=== PATIENT | male | born 1955 | race Caucasian/White ===

== ENCOUNTER 2024-12-02 08:38 | Outpatient (AMB) | payer MEDICARE, MEDICAID, SELFPAY ==
[2024-12-02 08:54] VITALS: BP 190/93; PULSE 63; RESP 17; TEMP 35.7; O2SAT 98; BMI 37.1
--- NOTE | 2024-12-02 08:54 | ACNOTE_ITS ---
Vital Signs 12/02/24 08:54 Height 1.8 m Height Method Measured Weight 120.769 kg Weight Measurement Method Standing Scale BMI 37.1 BP 190/93 H Blood Pressure Source Automatic Cuff Blood Pressure Location Right Upper Arm Position Sitting Respiration 17 Pulse 63 Pulse Source Monitor Temp 96.3 F L Temp Source Temporal Artery Scan Pulse Oximetry (%) 98 Oxygen Delivery Method Room Air Allergies/Meds Allergies & Medications Allergies No Known Allergies Allergy (Verified 12/02/24 08:55) Medication Reconciliation atorvastatin 40 mg tablet 40 mg PO DAILY 02/23/24 [History Confirmed 12/02/24] metoprolol tartrate 100 mg tablet 100 mg PO BID 02/23/24 [History Confirmed 12/02/24] nitroglycerin 0.4 mg sublingual tablet 0.4 mg buccal 02/23/24 [History Confirmed 12/02/24] olmesartan 40 mg tablet 40 mg 02/23/24 [History Confirmed 12/02/24] rivaroxaban 20 mg tablet (Xarelto) mg 02/23/24 [History Confirmed 12/02/24] lorazepam 0.5 mg tablet 0.5 mg PO QDAY PRN anxiety #20 tabs 12/02/24 [Rx] tramadol 50 mg tablet 50 mg PO BID PRN pain #30 tabs 12/02/24 [Rx] venlafaxine 37.5 mg capsule,extended release 24 hr 37.5 mg PO QDAY #30 caps 12/02/24 [Rx] MA Intake Visit Data Collection Reason for Visit:: RIGHT SHOULDER PAIN Pain Present Currently: Yes 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 Required: No PCP or OBGYN visit in last 3 months: No Hx Now: No Do You Feel Safe at Home: Yes Authorities Contacted: N/A Smoking Status Smoking Status: Never smoker Immunization / Flu Flu Vaccine in the Last 12 Months: No Flu Vaccine Exclusion Criteria: No Exclusion Criteria Past Medical History Past Medical History NEUROLOGIC: Negative Cerebrovascular Accident or Seizures CARDIAC: Positive Myocardial Infarction, Atrial Fibrillation, Coronary Artery Disease, Hypercholesterolemia, Congestive Heart Failure, Congenital Heart Disease and Hypertension; Negative Angina, Peripheral Vascular Disease or Valvular Heart Disease RESPIRATORY: Positive Bronchitis; Negative Chronic Obstructive Pulmonary Disease (COPD), Asthma or Sleep Apnea GASTROINTESTINAL: Positive Ulcer and Gastroesophageal Reflux Disease GENITOURINARY: Negative Renal Disease MUSCULOSKELETAL: Positive Fractures (jaw-wire sternal ohs wires) ENDOCRINE: Positive Diabetes Mellitus Type 2; Negative Diabetes Mellitus Type 1 HEMATOLOGIC: Negative Anemia PSYCHO/SOCIAL: Positive Anxiety and Post Traumatic Stress Disorder OTHER HISTORY: Negative Blood Transfusions or Cancer Surgical History SURGICAL: Positive Open Heart Surgery, Coronary Artery Bypass Graft (cabgx3), Coronary Stent (x2), Cardiac Catheterization, Pacemaker and Angiogram; Negative Thyroidectomy Social History SMOKING STATUS: Smoking status: Never smoker ALCOHOL: Alcohol Intake: Current HOUSING: Housing: House Patient Portal Questionaires Social History Living Situation History Housing: House Tobacco History Smoking Status: Never smoker Alcohol History Alcohol Intake: Current Domestic Abuse History Do You Feel Safe at Home: Yes Review of Systems Report any current symptoms Only answer those that you have currently: Past Medical History Past Medical History Have you ever been diagnosed with any of the following: Neurological Problems Cerebrovascular Accident (CVA): No Seizures: No Cardiology Problems Myocardial Infarction: Yes Atrial Fibrillation: Yes Angina: No Coronary Artery Disease: Yes Peripheral Vascular Disease: No Hypercholesterolemia: Yes Congestive Heart Failure: Yes Congenital Heart Disease: Yes Valvular Heart Disease: No Hypertension: Yes Respiratory Problems Chronic Obstructive Pulmonary Disease (COPD): No Asthma: No Bronchitis: Yes Sleep Apnea: No Stomache/Intestinal Problems Ulcer: Yes Gastroesophageal Reflux Disease: Yes Genital/Urinary Problems Renal Disease: No Musculoskeletal Problems Fractures: Yes (jaw-wire sternal ohs wires) Endocrine Problems Diabetes Mellitus Type 1: No Diabetes Mellitus Type 2: Yes Blood Problems Anemia: No Psychologic Problems Anxiety: Yes Post Traumatic Stress Disorder: Yes Other Problems Blood Transfusions: No Cancer: No Surgical History Coronary Artery Bypass Graft: Yes (cabgx3) Pacemaker: Yes Thyroidectomy: No History of Present Illness HPI Narrative 69-year-old male with past medical history of CAD s/p stents x 2 and bypass x 3, 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 Patient states that he does not have any primary care physician for quite some time now as he previously was seeing another primary care physician, but stopped seeing them. Patient stated that recently he got a prostate infection for which she saw a walk-in clinic, but did not follow-up with them after treatment. He states that he has not had blood work for quite some time now. Patient stated that he has never had a colonoscopy and he refuses to have one at this time. Patient has been taking ibuprofen 600 mg 3-4 times a day due to right shoulder pain with brought him to seek care today with us. Patient stated that he also noted his nosebleed and dark stools a few days ago and that he thought that it was likely due to the ibuprofen. Patient also states that he drinks around 4 wine glasses every nigh t. Patient states that he drinks 4 glasses of wine every night since he has not been taking his Ativan. He states that his previous primary care physician did not want to refill his Ativan where subsequently resulted in the patient not seen the primary care physician anymore and more quantities of alcohol in order to help with his anxiety and panic as well as with his pain. Patient stated Tylenol does not help at all. He stated that he was in the past on Lexapro for his anxiety/panic, but that he stopped this himself after he read online that these could cause A-fib. Patient was educated on his current diagnoses and need for further workup as well as treatment for his anxiety/panic with an SNRI. He stated that he was a little bit reluctant in starting the SNRI given that he can potentially cause him to have A-fib again. It was explained to him that currently has a pacemaker and he is currently on treatment for A-fib and he also has an ICD in place therefore initiation of this treatment would be more beneficial for him as it would likely decrease his alcohol consumption at this time. Will also order Ativan 0.5 mg as needed daily for uncontrollable anxiety/panic and it was explained thoroughly to the patient that this medication cannot be used at the same time with alcohol and he stated that he understood this and when he was using Ativan he did not use alcohol at all. E xplained the risk factors to respiratory depression and risk even including when combining these medications with alcohol. For the patient's pain we have also started tramadol 50 mg twice daily as needed. Will follow-up in 2 weeks to monitor his improvement in his pain and follow-up on labs and x-rays. Review of Systems Review of Systems Narrative Review of Systems: Constitutional: Denies sweats, Denies weight loss/gain, Denies fever, Denies chills, Admits anxiety/panic HEENT: Denies hearing loss, Denies ear pain, Denies postnasal drip, Denies double vision, Denies blurry vision. Respiratory: Denies shortness of breath, Denies cough, Denies wheezing. Cardiovascular: Denies chest pain, Denies palpitations, Denies sudden loss of consciousness. GI: Denies blood in stool, Denies constipation, Denies abdominal pain, Denies difficulty swallowing, Denies nausea or vomit. : Denies urinary incontinence, Denies pain while urinating, Denies increased urinary frequency. MSK: Admits joint pain, Denies joint swelling, Denies numbness. Skin: Denies rash, Denies itching, Denies easy bruising. Neuro: Denies headaches, Denies dizziness, Denies seizures. Objective/Exam General General Appearance: alert, in no apparent distress, comfortable and cooperative Head Head exam: atraumatic, normocephalic and normal inspection Eye Eye exam: Present normal appearance, PERRL and EOMI ENT ENT exam: Present normal exam, normal oropharynx and mucous membranes moist Neck Neck exam: Present normal inspection, full ROM and tenderness (mild tenderness with R side movment ) Resp Respiratory exam: Present normal lung sounds bilaterally Card Cardiovascular exam: Present regular rate, normal rhythm and normal heart sounds Abdominal Abdominal exam: Present soft and normal bowel sounds Extremities Extremities exam: Present normal inspection, full ROM (except for mildly restricted R shoulder posterior movement ), tenderness (R shoulder and tricep area ) and pedal edema (trace) Neuro Neurological exam: Present alert, oriented X3, CN II-XII intact and normal gait Psych Psychiatric exam: Present normal affect and normal mood Skin Skin exam: Present warm, intact and normal color Assessment & Plan Diagnosis / Problem List (1) Shoulder pain: Status: Acute Qualifiers: Chronicity: chronic Laterality: right Qualified Code(s): M25.511 - Pain in right shoulder; G89.29 - Other chronic pain Assessment & Plan: Patient states he has had right shoulder pain since last year in summer, he does not recall any trauma or any abnormal movements. He has been taking ibuprofen 600 mg 2 or 3 times a day to control the pain He states that his pain will initially was with some episodes, but noise continues. Plan: Will get x-ray of right shoulder as well as cervical spine as patient could be having some cervical radiculopathy Will also refer patient for physical therapy Will start patient on tramadol 50 mg twice daily for total of 30 pills and will monitor improvement on next visit (2) Cervicalgia: Status: Acute Assessment & Plan: Patient states he has had right shoulder pain since last year in summer, he does not recall any trauma or any abnormal movements. Now has some neck pain. He has been taking ibuprofen 600 mg 2 or 3 times a day to control the pain He states that his pain will initially was with some episodes, but noise continues. Plan: Will get x-ray of right shoulder as well as cervical spine as patient could be having some cervical radiculopathy Will also refer patient for physical therapy Will start patient on tramadol 50 mg twice daily for total of 30 pills and will monitor improvement on next visit (3) Panic anxiety syndrome: Status: Acute Assessment & Plan: Patient stated that he has been having panic attacks and anxiety for quite some time he was previously on Lexapro, but that he stopped this medication by his own accord as he read online that this could cause A-fib. Patient states that he has been drinking more alcohol, 4 wine glasses every evening, due to patient's diarrhea and panic as he has not been taking his Ativan as it was not prescribed at his previous primary care physician. Plan: Advised patient to abstain from alcohol Started patient on venlafaxine 37.5 mg Prescribed Ativan 0.5 mg p.o. daily as needed Again explained risk about mixing the prescribed medications with alcohol as th mandi could cause respiratory depression and can lead to . Patient understood risks and stated that he would not drink alcohol (4) Melena: Status: Acute Assessment & Plan: Patient has been taking ibuprofen 600 mg 3-4 times a day He experienced some melena recently and is on Xarelto Plan: Advised patient to stop taking NSAIDs Will order occult blood Will order CBC Will possibly refer patient to GI if occult blood positive and drop in hemoglobin. (5) DM (diabetes mellitus): Status: Acute Qualifiers: Diabetes mellitus complication status: without complication Diabetes mellitus intermodal customer service insulin use: unspecified penitentiary insulin use status Diabetes mellitus type: type 2 Qualified Code(s): E11.9 - Type 2 diabetes mellitus without complications Assessment & Plan: Patient's last A1c was 7.6 in 2023 Patient is not currently on any diabetes medication Plan: Ordered A1c Ordered CMP Ordered lipid panel Orders: Orders Ambulatory Hemoglobin A1C Today Mega Lang MD E11.9 - Type 2 diabetes mellitus without complications Comprehensive Metabolic Panel Today Mega Lang MD E11.9 - Type 2 diabetes mellitus without complications Thyroid Stimulating Hormone Today Mega Lang MD I25.10 - Atherosclerotic heart disease of [place] coronary artery without angina pectoris, I48.91 - Unspecified atrial fibrillation XR shoulder RT min 2V Today Mega Lang MD M25.519 - Pain in unspecified shoulder Lipid Panel Today Mega Lang MD E11.9 - Type 2 diabetes mellitus without complications, I25.10 - Atherosclerotic heart disease of [place] coronary artery without angina pectoris CBC Today Mega Lang MD E11.9 - Type 2 diabetes mellitus without complications Occult Blood, Stool (LAB) Today Mega Lang MD K92.1 - Melena XR cervical spine 1V Today Mega Lang MD M54.2 - Cervicalgia Additional Plan Case disclosed with Attending Dr. Alley Lang PGY1 Disclaimer: Even though this this note was dictated by speech recognition and even though it was carefully revised there may still be minor errors in subway operator due to voice recognition software. 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
== END 2024-12-02 09:56 | disposition home or self-care (01) ==
PROVIDERS: Supervising Provider Internal Medicine; Visit Provider Student in an Organized Health Care Education/Training Program
DX: M25.511 Pain in right shoulder (principal); M54.2 Cervicalgia; F41.0 Panic disorder [episodic paroxysmal anxiety]; K92.1 Melena; E11.9 Type 2 diabetes mellitus without complications; I25.10 Atherosclerotic heart disease of native coronary artery without angina pectoris; Z95.5 Presence of coronary angioplasty implant and graft; I50.20 Unspecified systolic (congestive) heart failure; Z95.810 Presence of automatic (implantable) cardiac defibrillator
CPT/HCPCS: 99203; G0463

== ENCOUNTER → 2024-12-21 | Outpatient (CLI) | payer MEDICARE, MEDICAID, SELFPAY ==
[2024-12-21 11:24] LABS: Basophils # (Auto) 0.0 Thou/mm3 (0.0-0.2); Basophils % (Auto) 1 % (0-2.5); Eosinophils # (Auto) 0.1 Thou/mm3 (0.0-0.5); Eosinophils % (Auto) 1 % (0-10); Hematocrit 41.0 % (41.0-53.0); Hemoglobin 14.0 g/dL (13.5-16.0); Immature Granulocytes Auto 0.03 Thou/mm3 (0.00-0.00); Lymphocytes # (Auto) 1.9 Thou/mm3 (1.0-4.8); Lymphocytes % (Auto) 30 % (10-50); Mean Corpuscular HGB Conc 34.1 g/dl (31.0-37.0); Mean Corpuscular Hemoglobin 31.3 pg (25.0-35.0); Mean Corpuscular Volume 92 fL (80-100); Monocytes # (Auto) 0.6 Thou/mm3 (0.0-0.8); Monocytes % (Auto) 10 % (0-12); Neutrophils # (Auto) 3.8 Thou/mm3 (1.8-7.7); Neutrophils % (Auto) 59 % (37-80); Nucleated Red Blood Cell # 0.00 Thou/mm3 (0.00-0.00); Nucleated Red Blood Cell % 0 /100 WBC (0); Platelet Count 180 Thou/mm3 (140-440); RDW Standard Deviation 40.9 fL (35.1-43.9); Red Blood Count 4.47 Miln/mm3 (4.50-5.90); White Blood Count 6.5 Thou/mm3 (3.8-10.6)
[2024-12-21 11:41] LABS: Glucose Estimated Average 131 mg/dL (80-131); Hemoglobin A1C 6.2 % Hgb (4.8-6.0)
[2024-12-21 11:49] LABS: Alanine Aminotransferase 59 U/L (10-49); Albumin, Serum 4.3 gm/dL (3.4-4.8); Albumin/Globulin Ratio 2.0 (1.2-2.2); Alkaline Phosphatase 63 U/L (46-116); Anion Gap 10 (7-16); Aspartate Amino Transferase 54 U/L (0-34); BUN/Creatinine Ratio 13 Ratio (12-20); Bilirubin,Total 1.0 mg/dL (0.3-1.2); Blood Urea Nitrogen 12 mg/dL (9-23); Calcium 9.2 mg/dL (8.3-10.6); Calcium (Corrected) 9.2 mg/dL (8.5-10.1); Carbon Dioxide 25.6 mMol/L (20.0-31.0); Cardiac Risk Estimate 3.3 RATIO (4.0-6.7); Chloride 103 mMol/L (98-107); Cholesterol 150 mg/dL (132-200); Creatinine (Component) 0.9 mg/dL (0.6-1.3); Globulin 2.1 gm/dL (2.3-3.5); Glucose 133 mg/dL (74-106); HDL Cholesterol 46 mg/dL (40-60); LDL Cholesterol,Calculated 68 mg/dL (0-130); Osmolality,Calculated 279 (275-295); Potassium 4.6 mMol/L (3.4-5.1); Sodium 139 mMol/L (136-145); Thyroid Stimulating Hormone 2.95 uIU/mL (0.55-4.78); Total Protein 6.4 gm/dL (5.7-8.2); Triglycerides 179 mg/dL (30-150); eGFR > 60 See Note
== END | disposition home or self-care (01) ==
DX: I48.91 Unspecified atrial fibrillation (principal); I25.10 Atherosclerotic heart disease of native coronary artery without angina pectoris; E11.9 Type 2 diabetes mellitus without complications
CPT/HCPCS: 36415; 80053; 80061; 83036; 84443; 85025

== ENCOUNTER 2024-12-23 09:49 | Outpatient (AMB) | payer MEDICARE, MEDICAID, SELFPAY ==
[2024-12-23 10:06] VITALS: BP 170/79; PULSE 64; RESP 20; TEMP 37; O2SAT 97; BMI 36.8
--- NOTE | 2024-12-23 10:06 | PD.RESCLINIC ---
Vital Signs 12/23/24 10:06 Height 1.8 m Height Method Stated Weight 119.295 kg Weight Measurement Method Standing Scale BMI 36.8 BP 170/79 H Blood Pressure Source Automatic Cuff Blood Pressure Location Left Upper Arm Position Sitting Respiration 20 Pulse 64 Pulse Source Monitor Temp 98.6 F Temp Source Temporal Artery Scan Pulse Oximetry (%) 97 Oxygen Delivery Method Room Air Allergies/Meds Allergies & Medications Allergies No Known Allergies Allergy (Verified 12/02/24 08:55) MA Intake Visit Data Collection New Patient or Established: Established Patient (seen at [facility] within 3 years) Seen by Clinical Staff ONLY (RN/MA): No Reason for Visit:: FOLLOW UP/ RIGHT SHOULDER PAIN Pain Present Currently: Yes Pain Location: Shoulder (RIGHT SHOULDER PAIN WITH NUMBNESS ) Pain scale:: 8 Cashier Courtesy Booth Required: No PCP or OBGYN visit in last 3 months: Yes Date of Last PCP or OBGYN visit: 12/02/24 Do You Feel Safe at Home: Yes Authorities Contacted: N/A Smoking Status Smoking Status: Never smoker Immunization / Flu Flu Vaccine in the Last 12 Months: Yes Flu Vaccine Exclusion Criteria: Already Received Past Medical History Past Medical History NEUROLOGIC: Negative Cerebrovascular Accident or Seizures CARDIAC: Positive Myocardial Infarction, Atrial Fibrillation, Coronary Artery Disease, Hypercholesterolemia, Congestive Heart Failure, Congenital Heart Disease and Hypertension; Negative Angina, Peripheral Vascular Disease or Valvular Heart Disease RESPIRATORY: Positive Bronchitis; Negative Chronic Obstructive Pulmonary Disease (COPD), Asthma or Sleep Apnea GASTROINTESTINAL: Positive Ulcer and Gastroesophageal Reflux Disease GENITOURINARY: Negative Renal Disease MUSCULOSKELETAL: Positive Fractures (jaw-wire sternal ohs wires) ENDOCRINE: Positive Diabetes Mellitus Type 2; Negative Diabetes Mellitus Type 1 HEMATOLOGIC: Negative Anemia PSYCHO/SOCIAL: Positive Anxiety and Post Traumatic Stress Disorder OTHER HISTORY: Negative Blood Transfusions or Cancer Surgical History SURGICAL: Positive Open Heart Surgery, Coronary Artery Bypass Graft (cabgx3), Coronary Stent (x2), Cardiac Catheterization, Pacemaker and Angiogram; Negative Thyroidectomy Social History SMOKING STATUS: Smoking status: Never smoker ALCOHOL: Alcohol Intake: Current HOUSING: Housing: House Patient Portal Questionaires Social History Living Situation History Housing: House Tobacco History Smoking Status: Never smoker Alcohol History Alcohol Intake: Current Domestic Abuse History Do You Feel Safe at Home: Yes Review of Systems Report any current symptoms Only answer those that you have currently: Past Medical History Past Medical History Have you ever been diagnosed with any of the following: Neurological Problems Cerebrovascular Accident (CVA): No Seizures: No Cardiology Problems Myocardial Infarction: Yes Atrial Fibrillation: Yes Angina: No Coronary Artery Disease: Yes Peripheral Vascular Disease: No Hypercholesterolemia: Yes Congestive Heart Failure: Yes Congenital Heart Disease: Yes Valvular Heart Disease: No Hypertension: Yes Respiratory Problems Chronic Obstructive Pulmonary Disease (COPD): No Asthma: No Bronchitis: Yes Sleep Apnea: No Stomache/Intestinal Problems Ulcer: Yes Gastroesophageal Reflux Disease: Yes Genital/Urinary Problems Renal Disease: No Musculoskeletal Problems Fractures: Yes (jaw-wire sternal ohs wires) Endocrine Problems Diabetes Mellitus Type 1: No Diabetes Mellitus Type 2: Yes Blood Problems Anemia: No Psychologic Problems Anxiety: Yes Post Traumatic Stress Disorder: Yes Other Problems Blood Transfusions: No Cancer: No Surgical History Coronary Artery Bypass Graft: Yes (cabgx3) Pacemaker: Yes Thyroidectomy: No History of Present Illness HPI Narrative 69-year-old male with past medical history of CAD s/p stents x 2 and bypass x 3, 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 Patient states that he does not have any primary care physician for quite some time now as he previously was seeing another primary care physician, but stopped seeing them. Patient stated that recently he got a prostate infection for which she saw a walk-in clinic, but did not follow-up with them after treatment. He states that he has not had blood work for quite some time now. Patient stated that he has never had a colonoscopy and he refuses to have one at this time. Patient has been taking ibuprofen 600 mg 3-4 times a day due to right shoulder pain with brought him to seek care today with us. Patient stated that he also noted his nosebleed and dark stools a few days ago and that he thought that it was likely due to the ibuprofen. Patient also states that he drinks around 4 wine glasses every night. Patient states that he drinks 4 glasses of wine every night since he has not been taking his Ativan. He states that his previous primary care physician did not want to refill his Ativan where subsequently resulted in the patient not seen the primary care physician anymore and more quantities of alcohol in order to help with his anxiety and panic as well as with his pain. Patient stated Tylenol does not help at all. He stated that he was in the past on Lexapro for his anxiety/panic, but that he stopped this himself after he read online that these could cause A-fib. Patient was educated on his current diagnoses and need for further workup as well as treatment for his anxiety/panic with an SNRI. He stated that he was a little bit reluctant in starting the SNRI given that he can potentially cause him to have A-fib again. It was explained to him that currently has a pacemaker and he is currently on treatment for A-fib and he also has an ICD in place therefore initiation of this treatment would be more beneficial for him as it would likely decrease his alcohol consumption at this time. Will also order Ativan 0.5 mg as needed daily for uncontrollable anxiety/panic and it was explained thoroughly to the patient that this medication cannot be used at the same time with alcohol and he stated that he understood this and when he was using Ativan he did not use alcohol at all. Explained the risk factors to respiratory depression and risk even including when combining these medications with alcohol. For the patient's pain we have also started tramadol 50 mg twice daily as needed. Will follow-up in 2 weeks to monitor his improvement in his pain and follow-up on labs and x-rays. 12/23/24: Patient presented with follow-up to the clinic.Lab work from 12/21 showed white count 6.5, hemoglobin 14, platelet count 180. Chemistry panel showed sodium 139, potassium 4.6, chloride 103, bicarb 25.6. BUN 12 and creatinine 0.9. A1c improved from 7.6->6.2. Triglycerides 179 [improved from 326 from 02/04/2024] TSH 2.95. He reported that he has right shoulder pain from quite a while and has been using ibuprofen which is partially helpful. Range of motion is not limited on passive flexion and extension as well as active flexion extension. He also reports to have pain in the mid scapular right region and neck pain along with muscle spasm. Patient was advised to get x-ray cervical spine and x-ray of shoulder 2 view to evaluate any gross abnormality. He was given prescription for baclofen 5 mg twice daily as needed for muscle spasm along with topical ibuprofen to be applied once or twice to alieviate pain. He was advised to follow-up in a week with x-ray results. If x-ray results are abnormal we will be likely given referral for orthopedics, Dr. Mckeon at [place]. MRI shoulder might be needed however patient has a pacemaker possibly MRI compatible will need evaluation for that as well. If everything comes negative he will benefit with physical therapy which will be given based on x-ray results next week. Patient reported that he has cut back on drinking wine once every day and no other active concerns were notified. Follow-up in a week Review of Systems Review of Systems Systems Reviewed: All systems reviewed, normal except as documented Objective/Exam Narrative Physical exam: GENERAL APPEARANCE: AxOx4, generally well-appearing male in no acute distress. HEENT: NC, AT. MMM. EOMI, clear conjunctiva, oropharynx clear. NECK: Supple without lymphadenopathy. No stiffness or restricted ROM. HEART: Irregular rate and regular rhythm, normal S1/S2, no m/r/g. Pacemaker present. LUNGS: CTAB, moving air well. No crackles or wheezes are heard. ABDOMEN: Soft, nontender, nondistended with good bowel sounds heard. BACK: No CVAT, no obvious deformity. EXTREMITIES: Right shoulder pain and tenderness. Full range of active and passive motion of the right shoulder. Mild neck spasm along with pointing pain on mid scapula. NEUROLOGICAL: Grossly nonfocal. Alert and oriented, moving all 4 extremities. CN not formally tested but appear grossly intact. Observed to ambulate with normal gait. Skin: Warm and dry without any rash. Psych: Appropriate mood and affect Assessment & Plan Diagnosis / Problem List (1) DM (diabetes mellitus): Status: Acute Qualifiers: Diabetes mellitus type: type 2 Diabetes mellitus superintendent container terminal insulin use: unspecified senior living insulin use status Diabetes mellitus complication status: without complication Qualified Code(s): E11.9 - Type 2 diabetes mellitus without complications Assessment & Plan: - Patient reported that he controls his blood sugars with dietary modification only. -A1c improved from 7.6->6.2. -Lab work from 12/21 showed white count 6.5, hemoglobin 14, platelet count 180. Chemistry panel showed sodium 139, potassium 4.6, chloride 103, bicarb 25.6. BUN 12 and creatinine 0.9. Triglycerides 179 [improved from 326 from 02/04/2024] TSH 2.95. Plan: - Recommended to continue dietary modification (2) Cervicalgia: Status: Acute Assessment & Plan: -He reported that he has right shoulder pain from quite a while and has been using ibuprofen which is partially helpful. -He also reports to have pain in the mid scapular right region and neck pain along with muscle spasm. Endorses numbness and tingling sensation over the arm. Plan: -Advised to get x-ray cervical spine and x-ray of shoulder 2 view to evaluate any gross abnormality. -He was given prescription for baclofen 5 mg twice daily as needed for muscle spasm along with topical ibuprofen to be applied once or twice to alieviate pain. -He was advised to follow-up in a week with x-ray results. If x-ray results are abnormal we will be likely given referral for orthopedics, Dr. Mckeon at [place]. MRI shoulder might be needed however patient has a pacemaker possibly MRI compatible will need evaluation for that as well. If everything comes negative he will benefit with physical therapy which will be given based on x-ray results next week. - Will benefit from pregabalin for neuralgic pain as he reported to have numbness and tingling sensation over the right arm (3) Shoulder pain: Status: Acute Qualifiers: Chronicity: chronic Laterality: right Qualified Code(s): M25.511 - Pain in right shoulder; G89.29 - Other chronic pain Assessment & Plan: - Refer to cervicalgia Plan: -Refer to cervicalgia (4) Panic anxiety syndrome: Status: Acute Assessment & Plan: - Patient reported to have right shoulder pain however anxiety has been improving. - He reported to cut back on drinking wine once every week now. - Anxiety has improved Plan: - Patient is not currently taking venlafaxine therefore was discontinued given concern for going back to A-fib Patient was seen and discussed with attending physician, Dr.[email or web address] Dr. Miguel Angel MD, PGY 3 Orders: Orders XR shoulder RT min 2V Today M25.519 - Pain in unspecified shoulder XR cervical spine 1V Today M54.2 - Cervicalgia Advanced Care Planning Advance care planning discussed with:: patient Office Procedures [facility] Level of Care Nursing/Assessment Patient Status: Established Patient Nursing Assessment/Reassessment: Medication Reconciliation, Update PMH in EMR and Vital Signs Coordination of Care: Complex Care and Chronic Disease 1-5, Consent,records obtained, informed consent, Lab and Imaging orders and Results/Orders obtained Established Patient Charge Established Patient Point Assignment: 80 Established Patient Point Charge: Level 3 (80-115)
== END 2024-12-23 10:59 | disposition home or self-care (01) ==
PROVIDERS: Supervising Provider Internal Medicine; Visit Provider Student in an Organized Health Care Education/Training Program
DX: M25.511 Pain in right shoulder (principal); M54.2 Cervicalgia; M62.830 Muscle spasm of back; Z95.0 Presence of cardiac pacemaker; E11.9 Type 2 diabetes mellitus without complications; Z71.3 Dietary counseling and surveillance; F41.0 Panic disorder [episodic paroxysmal anxiety]
CPT/HCPCS: 99213; G0463

== ENCOUNTER → 2024-12-23 | Outpatient (CLI) | payer MEDICARE, MEDICAID, SELFPAY ==
--- NOTE | 2024-12-23 | XR_ITS ---
Examination: Cervical spine 4 views TECHNIQUE: AP, lateral, swimmer's lateral, coned AP odontoid 4 views Date and time: 06/25/2024 1146 hours INDICATIONS: Neck pain radiating to the right shoulder beginning one year ago. FINDINGS: Adequate alignment cervical vertebral bodies No cervical fracture. Intact odontoid. Mild to moderate degenerative disc disease C5-C6, C6-C7 IMPRESSION: Mild to moderate degenerative disc disease C5-C6, C6-C7 with mild posterior osteophyte formation
== END | disposition home or self-care (01) ==
LOC: CDIM 10:44
PROVIDERS: PCP Student in an Organized Health Care Education/Training Program; Referring Provider Student in an Organized Health Care Education/Training Program; Visit Provider Student in an Organized Health Care Education/Training Program
DX: M50.322 Other cervical disc degeneration at C5-C6 level (principal); M25.78 Osteophyte, vertebrae
CPT/HCPCS: 72040

== ENCOUNTER 2024-12-30 09:20 | Outpatient (AMB) | payer MEDICARE, MEDICAID, SELFPAY ==
[2024-12-30 09:33] VITALS: BP 162/89; PULSE 65; RESP 17; TEMP 36.3; O2SAT 96; BMI 36.8
--- NOTE | 2024-12-30 09:33 | ACNOTE_ITS ---
Vital Signs 12/30/24 09:33 Height 1.8 m Height Method Stated Weight 119.805 kg Weight Measurement Method Standing Scale BMI 36.8 BP 162/89 H Blood Pressure Source Automatic Cuff Blood Pressure Location Right Upper Arm Position Sitting Respiration 17 Pulse 65 Pulse Source Monitor Temp 97.3 F Temp Source Temporal Artery Scan Pulse Oximetry (%) 96 Oxygen Delivery Method Room Air Allergies/Meds Allergies & Medications Allergies No Known Allergies Allergy (Verified 12/30/24 09:34) Medication Reconciliation atorvastatin 40 mg tablet 40 mg PO DAILY 02/23/24 [History Confirmed 12/30/24] metoprolol tartrate 100 mg tablet 100 mg PO BID 02/23/24 [History Confirmed 12/30/24] nitroglycerin 0.4 mg sublingual tablet 0.4 mg buccal 02/23/24 [History Confirmed 12/30/24] olmesartan 40 mg tablet 40 mg 02/23/24 [History Confirmed 12/30/24] rivaroxaban 20 mg tablet (Xarelto) mg 02/23/24 [History Confirmed 12/30/24] lorazepam 0.5 mg tablet 0.5 mg PO QDAY PRN anxiety #20 tabs 12/02/24 [Rx Confirm ed 12/30/24] tramadol 50 mg tablet 50 mg PO BID PRN pain #30 tabs 12/02/24 [Rx Confirmed 12/30/24] baclofen 5 mg tablet 5 mg PO BID PRN muscle spasm #30 tabs 12/23/24 [Rx Confirmed 12/30/24] salicylic acid 17 %-ibuprofen 2 % topical gel 1 ea topical QDAY PRN shoulder pain #30 grams 12/23/24 [Rx Confirmed 12/30/24] gabapentin 100 mg capsule 100 mg PO QHS #30 caps 12/30/24 [Rx] MA Intake Visit Data Collection New Patient or Established: Established Patient (seen at [facility] within 3 years) Seen by Clinical Staff ONLY (RN/MA): No Reason for Visit:: FOLLOW UP Pain Location: Shoulder (RIGHT) Pain scale:: 2 Pain Scale Used: Jones-Patricia/Numerical Eligibility Counselor Required: No PCP or OBGYN visit in last 3 months: Yes Date of Last PCP or OBGYN visit: 12/23/24 Do You Feel Safe at Home: Yes Authorities Contacted: N/A Smoking Status Smoking Status: Never smoker Immunization / Flu Flu Vaccine in the Last 12 Months: Yes Flu Vaccine Exclusion Criteria: Already Received Past Medical History Past Medical History NEUROLOGIC: Negative Cerebrovascular Accident or Seizures CARDIAC: Positive Myocardial Infarction, Atrial Fibrillation, Coronary Artery Disease, Hypercholesterolemia, Congestive Heart Failure, Congenital Heart Disease and Hypertension; Negative Angina, Peripheral Vascular Disease or Valvular Heart Disease RESPIRATORY: Positive Bronchitis; Negative Chronic Obstructive Pulmonary Disease (COPD), Asthma or Sleep Apnea GASTROINTESTINAL: Positive Ulcer and Gastroesophageal Reflux Disease GENITOURINARY: Negative Renal Disease MUSCULOSKELETAL: Positive Fractures (jaw-wire sternal ohs wires) ENDOCRINE: Positive Diabetes Mellitus Type 2; Negative Diabetes Mellitus Type 1 HEMATOLOGIC: Negative Anemia PSYCHO/SOCIAL: Positive Anxiety and Post Traumatic Stress Disorder OTHER HISTORY: Negative Blood Transfusions or Cancer Surgical History SURGICAL: Positive Open Heart Surgery, Coronary Artery Bypass Graft (cabgx3), Coronary Stent (x2), Cardiac Catheterization, Pacemaker and Angiogram; Negative Thyroidectomy Social History SMOKING STATUS: Smoking status: Never smoker SECOND HAND EXPOSURE: second hand exposure: No ALCOHOL: Alcohol Intake: Current HOUSING: Housing: [place] Patient Portal Questionaires PHQ-9 PHQ-2 Over the last 2 weeks, how often have you been bothered by any of the following problems? 1. Little interest or pleasure in doing things: not at all 2. Feeling down, depressed, or hopeless: not at all Total score: 0 PHQ-9 3. Trouble falling or staying asleep, or sleeping too much: Not at all 4. Feeling tired or having little energy: Not at all 5. Poor appetite or overeating: Not at all 6. Feeling bad about yourself - or that you are a failure or have let yourself or your family down: Not at all 7. Trouble concentrating on things, such as reading the newspaper or watching television: Not at all 8. Moving or speaking so slowly that other people could have noticed? - Or the opposite - being so fidgety or restless that you have been moving around a lot more than usual: not at all 9. Thoughts that you would be better off or of hurting yourself in some way: Not at all Total score: 0 If you checked off any problems, how difficult have these problems made it for you to do your work, take care of things at home, or get along with other people?: not difficult at all Source: Developed by Drs. Paolo L. GalileoTiffany oconnell, Larry Liriano and colleagues, with an educational nupur from [employer]. Depression screen completed yes Social History Living Situation History Marital Status: Unknown Lives With: Alone Housing: House Tobacco History Smoking Status: Never smoker Second Hand Smoke Exposure: No Alcohol History Alcohol Intake: Current Domestic Abuse History Do You Feel Safe at Home: Yes Review of Systems Report any current symptoms Only answer those that you have currently: Past Medical History Past Medical History Have you ever been diagnosed with any of the following: Neurological Problems Cerebrovascular Accident (CVA): No Seizures: No Cardiology Problems Myocardial Infarction: Yes Atrial Fibrillation: Yes Angina: No Coronary Artery Disease: Yes Peripheral Vascular Disease: No Hypercholesterolemia: Yes Congestive Heart Failure: Yes Congenital Heart Disease: Yes Valvular Heart Disease: No Hypertension: Yes Respiratory Problems Chronic Obstructive Pulmonary Disease (COPD): No Asthma: No Bronchitis: Yes Sleep Apnea: No Stomache/Intestinal Problems Ulcer: Yes Gastroesophageal Reflux Disease: Yes Genital/Urinary Problems Renal Disease: No Musculoskeletal Problems Fractures: Yes (jaw-wire sternal ohs wires) Endocrine Problems Diabetes Mellitus Type 1: No Diabetes Mellitus Type 2: Yes Blood Problems Anemia: No Psychologic Problems Anxiety: Yes Post Traumatic Stress Disorder: Yes Other Problems Blood Transfusions: No Cancer: No Surgical History Coronary Artery Bypass Graft: Yes (cabgx3) Pacemaker: Yes Thyroidectomy: No History of Present Illness HPI Narrative 69-year-old male with past medical history of CAD s/p stents x 2 and bypass x 3, 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 Patient states that he does not have any primary care physician for quite some time now as he previously was seeing another primary care physician, but stopped seeing them. Patient stated that recently he got a prostate infection for which she saw a walk-in clinic, but did not follow-up with them after treatment. He states that he has not had blood work for quite some time now. Patient stated that he has never had a colonoscopy and he refuses to have one at this time. Patient has been taking ibuprofen 600 mg 3-4 times a day due to right shoulder pain with brought him to seek care today with us. Patient stated that he also noted his nosebleed and dark stools a few days ago and that he thought that it was likely due to the ibuprofen. Patient also states that he drinks around 4 wine glasses every night. Patient states that he drinks 4 glasses of wine every night since he has not been taking his Ativan. He states that his previous primary care physician did not want to refill his Ativan where subsequently resulted in the patient not seen the primary care physician anymore and more quantities of alcohol in order to help with his anxiety and panic as well as with his pain. Patient stated Tylenol does not help at all. He stated that he was in the past on Lexapro for his anxiety/panic, but that he stopped this himself after he read online that these could cause A-fib. Patient was educated on his current diagnoses and need for further workup as well as treatment for his anxiety/panic with an SNRI. He stated that he was a little bit reluctant in starting the SNRI given that he can potentially cause him to have A-fib again. It was explained to him that currently has a pacemaker and he is currently on treatment for A-fib and he also has an ICD in place therefore initiation of this treatment would be more beneficial for him as it would likely decrease his alcohol consumption at this time. Will also order Ativan 0.5 mg as needed daily for uncontrollable anxiety/panic and it was explained thoroughly to the patient that this medication cannot be used at the same time with alcohol and he stated that he understood this and when he was using Ativan he did not use alcohol at all. Explained the risk factors to respiratory depression and risk even including when combining these medications with alcohol. For the patient's pain we have also started tramadol 50 mg twice daily as needed. Will follow-up in 2 weeks to monitor his improvement in his pain and follow-up on labs and x-rays. 12/23/24: Patient presented with follow-up to the clinic.Lab work from 12/21 showed white count 6.5, hemoglobin 14, platelet count 180. Chemistry panel showed sodium 139, potassium 4.6, chloride 103, bicarb 25.6. BUN 12 and creatinine 0.9. A1c improved from 7.6->6.2. Triglycerides 179 [improved from 326 from 02/04/2024] TSH 2.95. He reported that he has right shoulder pain from quite a while and has been using ibuprofen which is partially helpful. Range of motion is not limited on passive flexion and extension as well as active flexion extension. He also reports to have pain in the mid scapular right region and neck pain along with muscle spasm. Patient was advised to get x-ray cervical spine and x-ray of shoulder 2 view to evaluate any gross abnormality. He was given prescription for baclofen 5 mg twice daily as needed for muscle spasm along with topical ibuprofen to be applied once or twice to alieviate pain. He was advised to follow-up in a week with x-ray results. If x-ray results are abnormal we will be likely given referral for orthopedics, Dr. Mckeon at [place]. MRI shoulder might be needed however patient has a pacemaker possibly MRI compatible will need evaluation for that as well. If everything comes negative he will benefit with physical therapy which will be given based on x-ray results next week. Patient reported that he has cut back on drinking wine once every day and no other active concerns were notified. Follow-up in a week 12/30/24: Patient was seen in the clinic after a week. He reported mild improvement in his right shoulder pain and muscle spasm with baclofen. However, he continued to have numbness and tingling sensation in both arm and hand due to shoulder discomfort. For some reason, shoulder x-ray was not taken and only cervical C-spine was performed which showed degenerative disc disease with posterior osteophytes C5-C6, C6-C7. Patient was advised to continue taking baclofen as needed. Gabapentin 100 mg was added at night. Due to insurance problem, patient could not be referred to Dr. Powers in [place] and was referred to Dr. Cameron with which Dr. Cameron was agreeable. Recommended to have physical therapy at least once a week for total 6 weeks for improvement in shoulder pain. Will be following with shoulder x-ray and keep patient updated regarding the results once it is done. Denied any other new acute symptoms and blood sugars have been stable. Follow-up in a month. Review of Systems Review of Systems Systems Reviewed: All systems reviewed, normal except as documented Objective/Exam Narrative Physical exam: GENERAL APPEARANCE: AxOx4, generally well-appearing male in no acute distress. HEENT: NC, AT. MMM. EOMI, clear conjunctiva, oropharynx clear. NECK: Supple without lymphadenopathy. No stiffness or restricted ROM. HEART: Irregular rate and regular rhythm, normal S1/S2, no m/r/g. Pacemaker present. LUNGS: CTAB, moving air well. No crackles or wheezes are heard. ABDOMEN: Soft, nontender, nondistended with good bowel sounds heard. BACK: No CVAT, no obvious deformity. EXTREMITIES: Right shoulder pain and tenderness. Full range of active and pa ssive motion of the right shoulder. Mild neck spasm along with pointing pain on mid scapula. NEUROLOGICAL: Grossly nonfocal. Alert and oriented, moving all 4 extremities. CN not formally tested but appear grossly intact. Observed to ambulate with normal gait. Skin: Warm and dry without any rash. Psych: Appropriate mood and affect Assessment & Plan Diagnosis / Problem List (1) Shoulder pain: Status: Acute Qualifiers: Chronicity: chronic Laterality: right Qualified Code(s): M25.511 - Pain in right shoulder; G89.29 - Other chronic pain Assessment & Plan: 12/30 -He reported mild improvement in muscle spasm but continues to have numbness and tingling in rt arm and hands Plan: -Added Gabapentin 100 mg at night to alleivate pain in shoulder related to numbness and tingling -Re-ordered x-ray of shoulder 2 view as it was not taken last time -Cont baclofen 5 mg twice daily as needed for muscle spasm along with topical ibuprofen to be applied once or twice to alieviate pain. -Referred to Orthopedics Dr Cameron as his insurance doesn't cover for Dr Arias in [place] . Dr Cameron was agreeable to see the patient -Physical therapy once a week for total 6 weeks ,Patient cant go twice weekly due to transport issue (2) Degenerative disc disease, cervical: Status: Acute Assessment & Plan: -He reported that he has right shoulder pain from quite a while and has been using ibuprofen which is partially helpful. -He also reports to have pain in the mid scapular right region and neck pain along with muscle spasm. Endorses numbness and tingling sensation over the arm. 12/30-x-ray cervical spine showed degenerative disc disease C5-C6-C7 with posterior osteophytes -He reported mild improvement in muscle spasm but continues to have numbness and tingling in Rt arm and hands Plan: -Added Gabapentin 100 mg at night to alleivate pain in shoulder related to numbn ess and tingling -Re-ordered x-ray of shoulder 2 view as it was not taken last time -Cont baclofen 5 mg twice daily as needed for muscle spasm along with topical ibuprofen to be applied once or twice to alieviate pain. -Referred to Orthopedics Dr Cameron as his insurance doesn't cover for Dr Arias in [place] . Dr Cameron was agreeable to see the patient -Physical therapy once a week for total 6 weeks ,Patient cant go twice weekly due to transport issue (3) DM (diabetes mellitus): Status: Acute Qualifiers: Diabetes mellitus type: type 2 Diabetes mellitus salvage determiner insulin use: unspecified salvage determiner insulin use status Diabetes mellitus complication status: without complication Qualified Code(s): E11.9 - Type 2 diabetes mellitus without complications Assessment & Plan: - Patient reported that he controls his blood sugars with dietary modification only. -A1c improved from 7.6->6.2. -Lab work from 12/21 showed white count 6.5, hemoglobin 14, platelet count 180. Chemistry panel showed sodium 139, potassium 4.6, chloride 103, bicarb 25.6. BUN 12 and creatinine 0.9. Triglycerides 179 [improved from 326 from 02/04/2024] TSH 2.95. 12/30: Blood sugars are under control Plan: - Recommended to continue dietary modification Patient was seen and discussed with attending physician, Dr.Watanakunakorn Dr. Miguel Angel MD, PGY 3 Orders: Orders XR shoulder RT min 2V Today G89.29 - Other chronic pain, M25.511 - Pain in right shoulder Referrals Physical Therapy - Referral G89.29 - Other chronic pain, M25.511 - Pain in right shoulder, M50.30 - Other cervical disc degeneration, unspecified cervical region Orthopedics G89.29 - Other chronic pain, M25.511 - Pain in right shoulder, M50.30 - Other cervical disc degeneration, unspecified cervical region Advanced Care Planning Advance care planning discussed with:: patient Office Procedures [facility] Level of Care Nursing/Assessment Patient Status: Established Patient Nursing Assessment/Reassessment: Medication Reconciliation, Update PMH in EMR and Vital Signs Coordination of Care: Complex Care and Chronic Disease 1-5, Consent,records obtained, informed consent, Education Simp Pt/Fam and Staff clarify orders Established Patient Charge Established Patient Point Assignment: 85 Established Patient Point Charge: EP Level 3 (80-115) TB Screening LTBI Screening: Has patient traveled, was born, or resided for at least 1 month, or frequent border crossing into a country with an elevated TB rate: No Immunosuppression, current or planned (HIV, organ transplant, treated with biologic agents, steroids, or other immunosuppression medication): No Close contact to someone with infectious TB disease during lifetime: No Homelessness or incarceration, current or past: No TB testing indicated at this time (at least 1 yes above): No
== END 2024-12-30 10:12 | disposition home or self-care (01) ==
LOC: HODAHC 09:20
PROVIDERS: PCP Student in an Organized Health Care Education/Training Program; Referring Provider Student in an Organized Health Care Education/Training Program; Supervising Provider Internal Medicine; Visit Provider Student in an Organized Health Care Education/Training Program
DX: M25.511 Pain in right shoulder (principal); M50.322 Other cervical disc degeneration at C5-C6 level; M25.78 Osteophyte, vertebrae; M62.838 Other muscle spasm; E11.9 Type 2 diabetes mellitus without complications; Z71.3 Dietary counseling and surveillance
CPT/HCPCS: 99213; G0463

== ENCOUNTER → 2024-12-30 | Outpatient (CLI) | payer MEDICARE, MEDICAID, SELFPAY ==
--- NOTE | 2024-12-30 10:48 | XR_ITS ---
Examination: Shoulder,right, 3 views Technique: Shoulder AP internal rotation, AP external rotation, Y view shoulder, 3 views Exam date and time :December 30, 2024 11:27 AM INDICATIONS: Right shoulder pain one year. FINDINGS: Moderate to advanced osteoarthritis glenohumeral joint Moderate osteoarthritis acromioclavicular joint No fracture or shoulder dislocation IMPRESSION: Moderate to advanced osteoarthritis glenohumeral joint
== END | disposition home or self-care (01) ==
PROVIDERS: PCP Student in an Organized Health Care Education/Training Program; Referring Provider Student in an Organized Health Care Education/Training Program; Visit Provider Student in an Organized Health Care Education/Training Program
DX: M19.011 Primary osteoarthritis, right shoulder (principal); G89.29 Other chronic pain
CPT/HCPCS: 73030

== ENCOUNTER 2025-01-04 07:55 | Outpatient (AMB) | payer MEDICARE, MEDICAID, SELFPAY ==
--- NOTE | 2025-01-04 08:02 | ORTHONT_ITS ---
Vital signs 01/04/25 08:06 Height 1.8 m Height Method Measured Weight 119.04 kg Weight Measurement Method Standing Scale BMI 36.7 BP 157/74 H Blood Pressure Source Automatic Cuff Blood Pressure Location Left Upper Arm Position Sitting Respiration 16 Pulse 65 Pulse Source Monitor Temp 97.6 F Temp Source Temporal Artery Scan Pulse Oximetry (%) 97 Oxygen Delivery Method Room Air Med/Allergies Allergies & Medications Allergies No Known Allergies Allergy (Verified 01/04/25 08:07) Medication Reconciliation atorvastatin 40 mg tablet 40 mg PO DAILY 02/23/24 [History Confirmed 01/04/25] metoprolol tartrate 100 mg tablet 100 mg PO BID 02/23/24 [History Confirmed 01/04/25] nitroglycerin 0.4 mg sublingual tablet 0.4 mg buccal 02/23/24 [History Confirmed 01/04/25] olmesartan 40 mg tablet 40 mg 02/23/24 [History Confirmed 01/04/25] rivaroxaban 20 mg tablet (Xarelto) mg 02/23/24 [History Confirmed 01/04/25] lorazepam 0.5 mg tablet 0.5 mg PO QDAY PRN anxiety #20 tabs 12/02/24 [Rx Confirmed 01/04/25] tramadol 50 mg tablet 50 mg PO BID PRN pain #30 tabs 12/02/24 [Rx Confirmed 01/04/25] baclofen 5 mg tablet 5 mg PO BID PRN muscle spasm #30 tabs 12/23/24 [Rx Confirmed 01/04/25] salicylic acid 17 %-ibuprofen 2 % topical gel 1 ea topical QDAY PRN shoulder pain #30 grams 12/23/24 [Rx Confirmed 01/04/25] gabapentin 100 mg capsule 100 mg PO QHS #30 caps 12/30/24 [Rx Confirmed 01/04/25] Exam Exam Patient is in no acute distress and is cooperative with the examination today. Patient has a normal mood and affect. Breathing is nonlabored. In no respiratory distress. Bilateral extremities were evaluated and demonstrates sensation intact to light touch. Palpable radial pulses are present. No significant edema is present. He has pain with internal rotation and external rotation. He has no pain with resisted abduction. Spurling's test is positive. Assessment and Plan Problem List (1) Degenerative disc disease, cervical: Status: Acute (2) Cervical radiculopathy: Status: Acute (3) Shoulder arthritis: Status: Acute Plan: Patient is a 69-year-old male with right shoulder pain. He was found to have significant arthritis on the x-ray. He also has symptoms of cervical radiculopathy. We discussed injections as he cannot take anti-inflammatories. We discussed the risk of bleeding as well as that this could increase his sugars. Recommend shoulder cortisone injection as patient would like to proceed with conservative treatment at this time. The risks and benefits of the procedure were reviewed with the patient and patient gave verbal consent to continue with the procedure. Procedure: performed by Dr. Cameron Using sterile technique the Right shoulder was thoroughly prepped with alcohol, and approximately 1 cc of Depo-Medrol 80 mg/mL and 4 cc of 0.2% ropivacaine was injected without resistance into the glenohumeral joint space. The patient tolerated the procedure. Advanced Care Planning Discussion Advance care planning discussed with:: patient Office Procedures GNS Level of Care Nursing/Assessment Patient Status: Established Patient Nursing Assessment/Reassesment: Medication Reconciliation, Orthostatic Vitals, Update PMH in EMR and Vital Signs Coordination of Care: Complex Care and Chronic Disease 1-5, Education Complex Pt/Fam, Consent,records obtained, informed consent, Lab and Imaging orders, Results/Orders obtained and Staff clarify orders Established Patient Charge Established Patient Point Assignment: 120 Established Patient Point Charge: EP Level 4 (120-155) Medication Given Medication Given Medication Given: Yes Documented Dose Given: 1 Route: Infiitration Medication Given Medication Given Medication Given: Yes Documented Dose Given: 4 Route: Infiitration Office Meds methylprednisolone acetate 80 mg/mL suspension for injection Performing Provider: Agustín Cameron MD Performing Location: [facility] Administered by: Agustín Cameron MD on 01/04/25 08:28 Dose Route Admin Location Dispensed Lot Number Expiration Date [facility] Multimedia Engineer 80 mg intra-articular 1 mL [id number] 10/16/26 [address]-6 [facility] ropivacaine (PF) 2 mg/mL (0.2 %) injection solution Performing Provider: Agustín Cameron MD Performing Location: [facility] Administered by: Agustín Cameron MD on 01/04/25 08:28 Dose Route Admin Location Dispensed Lot Number Expiration Date [facility] Multimedia Engineer 20 mL Infiltration 20 mL [id number] 03/18/26 40416-746-19 [facility] Intake Visit Data Collection New Patient or Established: Established Patient (seen at [facility] within 3 years) Reason for Visit:: CERVICAL/SHOULDER F/U Seen by Clinical Staff ONLY (RN/MA): No Retail Client Solutions Analyst Required: No PCP or OBGYN visit in last 3 months: Yes Hx Now: No Do You Feel Safe at Home: Yes Authorities Contacted: N/A Questionairres Past Medical History Past Medical History Have you ever been diagnosed with any of the following: Neurological Problems Cerebrovascular Accident (CVA): No Seizures: No Cardiology Problems Myocardial Infarction: Yes Atrial Fibrillation: Yes Angina: No Coronary Artery Disease: Yes Peripheral Vascular Disease: No Hypercholesterolemia: Yes Congestive Heart Failure: Yes Congenital Heart Disease: Yes Valvular Heart Disease: No Hypertension: Yes Respiratory Problems Chronic Obstructive Pulmonary Disease (COPD): No Asthma: No Bronchitis: Yes Sleep Apnea: No Smoking: No Smoking Cessation Counseling: No Smoking Exposure: No Stomache/Intestinal Problems Ulcer: Yes Gastroesophageal Reflux Disease: Yes Genital/Urinary Problems Renal Disease: No Musculoskeletal Problems Fractures: Yes (jaw-wire sternal ohs wires) Endocrine Problems Diabetes Mellitus Type 1: No Diabetes Mellitus Type 2: Yes Blood Problems Anemia: No Psychologic Problems Anxiety: Yes Post Traumatic Stress Disorder: Yes Other Problems Blood Transfusions: No Cancer: No Surgical History Coronary Artery Bypass Graft: Yes ([id number]) Pacemaker: Yes Thyroidectomy: No Subjective Visit Visit for: follow up visit and shoulder Immunization / Flu Flu Vaccine in the Last 12 Months: Yes Flu Vaccine Exclusion Criteria: Already Received History of Present Illness Chief complaint: CERVICAL/SHOULDER F/U Patient is a 69-year-old male with right shoulder pain as well as radicular pain going down his hands. Has associated numbness and tingling. He reports the pain is bothering him quite a bit. He was prescribed gabapentin but has not taken it. He cannot take anti-inflammatories because of his Xarelto. His hemoglobin A1c is 6.2 Personal History Red flag PMH: none BMI Counceling provided: Yes Pain Pain level (0-10): 2 Pain location: other (specify) (RIGHT SHOULDER) Pain quality: dull Associated signs & symptoms: none Ambulatory data Ambulatory device: none Treatments Number of previous injections: 0 Improvement with previous injections: No Number of Physical Therapy sessions: 0 Improvement with PT: No Improvement with NSAIDS: no Review of Systems Review of Systems: All systems negative unless otherwise noted in HPI.
[2025-01-04 08:06] VITALS: BP 157/74; PULSE 65; RESP 16; TEMP 36.4; O2SAT 97; BMI 36.7
== END 2025-01-04 08:28 | disposition home or self-care (01) ==
LOC: HODSRG 07:55
PROVIDERS: PCP Student in an Organized Health Care Education/Training Program; Referring Provider Student in an Organized Health Care Education/Training Program; Supervising Provider Orthopaedic Surgery Adult Reconstructive Orthopaedic Surgery; Visit Provider Orthopaedic Surgery Adult Reconstructive Orthopaedic Surgery
DX: M50.30 Other cervical disc degeneration, unspecified cervical region (principal); M54.12 Radiculopathy, cervical region; M19.019 Primary osteoarthritis, unspecified shoulder; M25.511 Pain in right shoulder; I11.0 Hypertensive heart disease with heart failure; I50.9 Heart failure, unspecified; E78.00 Pure hypercholesterolemia, unspecified; I25.10 Atherosclerotic heart disease of native coronary artery without angina pectoris; I48.91 Unspecified atrial fibrillation; I25.2 Old myocardial infarction; K21.9 Gastro-esophageal reflux disease without esophagitis; E11.9 Type 2 diabetes mellitus without complications; Z95.1 Presence of aortocoronary bypass graft; Z95.0 Presence of cardiac pacemaker
CPT/HCPCS: 20610; 99214; J1010; J2795; G0463

== ENCOUNTER 2025-04-07 08:00 | Outpatient (AMB) | payer MEDICARE, MEDICAID, SELFPAY ==
--- NOTE | 2025-04-07 08:10 | ORTHONT_ITS ---
Vital signs 04/07/25 08:11 Height 1.8 m Height Method Stated Weight 120.656 kg Weight Measurement Method Standing Scale BMI 37.2 BP 164/89 H Blood Pressure Source Automatic Cuff Blood Pressure Location Left Upper Arm Position Sitting Respiration 18 Pulse 65 Pulse Source Monitor Temp 97.4 F Temp Source Temporal Artery Scan Pulse Oximetry (%) 97 Oxygen Delivery Method Room Air Med/Allergies Allergies & Medications Allergies No Known Allergies Allergy (Verified 04/07/25 08:11) Medication Reconciliation atorvastatin 40 mg tablet 40 mg PO DAILY 02/23/24 [History Confirmed 04/07/25] metoprolol tartrate 100 mg tablet 100 mg PO BID 02/23/24 [History Confirmed 04/07/25] nitroglycerin 0.4 mg sublingual tablet 0.4 mg buccal 02/23/24 [History Confirmed 04/07/25] olmesartan 40 mg tablet 40 mg 02/23/24 [History Confirmed 04/07/25] rivaroxaban 20 mg tablet (Xarelto) mg 02/23/24 [History Confirmed 04/07/25] lorazepam 0.5 mg tablet 0.5 mg PO QDAY PRN anxiety #20 tabs 12/02/24 [Rx Confirmed 04/07/25] tramadol 50 mg tablet 50 mg PO BID PRN pain #30 tabs 12/02/24 [Rx Confirmed 04/07/25] baclofen 5 mg tablet 5 mg PO BID PRN muscle spasm #30 tabs 12/23/24 [Rx Confirmed 04/07/25] salicylic acid 17 %-ibuprofen 2 % topical gel 1 ea topical QDAY PRN shoulder pain #30 grams 12/23/24 [Rx Confirmed 04/07/25] gabapentin 100 mg capsule 100 mg PO QHS #30 caps 12/30/24 [Rx Confirmed 04/07/25] Exam Exam Patient is in no acute distress and is cooperative with the examination today. Patient has a normal mood and affect. Breathing is nonlabored. In no respiratory distress. Bilateral extremities were evaluated and demonstrates sensation intact to light touch. Palpable radial pulses are present. No significant edema is present. He has pain with internal rotation and external rotation. He has no pain with resisted abduction. Spurling's test is positive. Assessment and Plan Problem List (1) Degenerative disc disease, cervical: Status: Acute (2) Cervical radiculopathy: Status: Acute (3) Shoulder arthritis: Status: Acute Plan: Patient is a 69-year-old male with right shoulder pain. He was found to have significant arthritis on the x-ray. He also has symptoms of cervical radiculopathy. We discussed injections as he cannot take anti-inflammatories. We discussed the risk of bleeding as well as that this could increase his sugars. He did well with the last injection. The pain is still mostly gone. We will hold off on another injection until his symptoms recur Advanced Care Planning Discussion Advance care planning discussed with:: patient Office Procedures GNS Level of Care Nursing/Assessment Patient Status: Established Patient Nursing Assessment/Reassesment: Medication Reconciliation, Update PMH in EMR and Vital Signs Coordination of Care: Complex Care and Chronic Disease 1-5, Education Complex Pt/Fam, Consent,records obtained, informed consent, Results/Orders obtained and Staff clarify orders Established Patient Charge Established Patient Point Assignment: 95 Established Patient Point Charge: EP Level 3 (80-115) MA Intake Visit Data Collection New Patient or Established: Established Patient (seen at [facility] within 3 years) Reason for Visit:: R SHOULDER INJ FU Seen by Clinical Staff ONLY (RN/MA): No 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: No PCP or OBGYN visit in last 3 months: Yes Hx Now: No Do You Feel Safe at Home: Yes Authorities Contacted: N/A Questionairres Past Medical History Past Medical History Have you ever been diagnosed with any of the following: Neurological Problems Cerebrovascular Accident (CVA): No Seizures: No Cardiology Problems Myocardial Infarction: Yes Atrial Fibrillation: Yes Angina: No Coronary Artery Disease: Yes Peripheral Vascular Disease: No Hypercholesterolemia: Yes Congestive Heart Failure: Yes Congenital Heart Disease: Yes Valvular Heart Disease: No Hypertension: Yes Respiratory Problems Chronic Obstructive Pulmonary Disease (COPD): No Asthma: No Bronchitis: Yes Sleep Apnea: No Smoking: No Smoking Cessation Counseling: No Smoking Exposure: No Stomache/Intestinal Problems Ulcer: Yes Gastroesophageal Reflux Disease: Yes Genital/Urinary Problems Renal Disease: No Musculoskeletal Problems Fractures: Yes (jaw-wire sternal ohs wires) Endocrine Problems Diabetes Mellitus Type 1: No Diabetes Mellitus Type 2: Yes Blood Problems Anemia: No Psychologic Problems Anxiety: Yes Post Traumatic Stress Disorder: Yes Other Problems Blood Transfusions: No Cancer: No Surgical History Coronary Artery Bypass Graft: Yes (cabgx3) Pacemaker: Yes Thyroidectomy: No Subjective Visit Visit for: follow up visit and shoulder Immunization / Flu Flu Vaccine in the Last 12 Months: Yes Flu Vaccine Exclusion Criteria: Already Received History of Present Illness Chief complaint: CERVICAL/SHOULDER F/U Patient is a 69-year-old male with right shoulder pain as well as radicular pain going down his hands. Has associated numbness and tingling. He reports the pain is bothering him quite a bit. He was prescribed gabapentin but has not taken it. He cannot take anti-inflammatories because of his Xarelto. His hemoglobin A1c is 6.2 We injected him at the last visit 3 months ago. He had complete pain including all the numbness and tingling down his arm which is a little surprising Personal History Red flag PMH: none BMI Counceling provided: Yes Pain Pain level (0-10): 2 Pain location: other (specify) (RIGHT SHOULDER) Pain quality: dull Associated signs & symptoms: none Ambulatory data Ambulatory device: none Treatments Number of previous injections: 0 Improvement with previous injections: No Number of Physical Therapy sessions: 0 Improvement with PT: No Improvement with NSAIDS: no Review of Systems Review of Systems: All systems negative unless otherwise noted in HPI.
[2025-04-07 08:11] VITALS: BP 164/89; PULSE 65; RESP 18; TEMP 36.3; O2SAT 97; BMI 37.2
== END 2025-04-07 08:19 | disposition home or self-care (01) ==
LOC: HODSRG 08:00
PROVIDERS: PCP Student in an Organized Health Care Education/Training Program; Referring Provider Student in an Organized Health Care Education/Training Program; Supervising Provider Orthopaedic Surgery Adult Reconstructive Orthopaedic Surgery; Visit Provider Orthopaedic Surgery Adult Reconstructive Orthopaedic Surgery
DX: M25.511 Pain in right shoulder (principal); M19.011 Primary osteoarthritis, right shoulder; M50.10 Cervical disc disorder with radiculopathy, unspecified cervical region; I10 Essential (primary) hypertension
CPT/HCPCS: 99213; G0463